=== PATIENT | female | born 1945 | race Caucasian/White ===

== ENCOUNTER → 2017-11-03 09:00 | Outpatient (CLI) | payer MEDICARE, OTHER, SELFPAY ==
--- NOTE | 2017-11-03 | DI.MG.S_ITS ---
BILATERAL DIGITAL SCREENING MAMMOGRAM 3D/2D WITH CAD: 11/03/2017 CLINICAL: Routine screening. Comparison is made to exams dated: 10/05/2014 mammogram, 09/22/2013 mammogram, and 08/03/2011 mammogram - [facility]. The tissue of both breasts is heterogeneously dense. This may lower the sensitivity of mammography. Current study was also evaluated with a Computer Aided Detection (CAD) system. No significant masses, calcifications, or other findings are seen in either breast. There has been no significant interval change. IMPRESSION: NEGATIVE There is no mammographic evidence of malignancy. A 1 year screening mammogram is recommended. This exam was interpreted at Station ID: [id number]. NOTE: For mammograms, a report in lay terms will be sent to the patient. Approximately 15% of breast malignancies will not be visualized mammographically. In the management of a palpable breast mass, a negative mammogram must not discourage biopsy of a clinically suspicious lesion. Electronically Signed By: Fernando moreno/viviana:11/03/2017 15:24:07 letter sent: Normal Exam ACR BI-RADS Category 1: Negative 3341F
== END ==
PROVIDERS: Family Provider Naturopath; PCP Family Medicine; Visit Provider Family Medicine
DX: Z12.31 Encounter for screening mammogram for malignant neoplasm of breast (principal)
CPT/HCPCS: 77063; 77067

== ENCOUNTER → 2018-05-16 13:55 | Outpatient (CLI) | payer MEDICARE, OTHER, SELFPAY ==
[2018-05-16 15:27] LABS: BUN Creatinine Ratio 21.4 (6-22); Blood Urea Nitrogen 15 mg/dL (7-17); Calcium 10.1 mg/dL (8.4-10.2); Carbon Dioxide 27 mmol/L (22-32); Chloride 101 mmol/L (98-107); Estimated Glomerular Filt Rate > 60.0 mL/min (>60); Glucose 86 mg/dL (80-110); HEMOLYSIS < 15 (0-50); Potassium 4.9 mmol/L (3.4-5.1); Sodium 139 mmol/L (137-145)
== END ==
PROVIDERS: Family Provider Naturopath; PCP Student in an Organized Health Care Education/Training Program; Visit Provider Internal Medicine Cardiovascular Disease
DX: R06.02 Shortness of breath (principal)
CPT/HCPCS: 36415; 80048

== ENCOUNTER → 2018-05-18 16:45 | Outpatient (CLI) | payer MEDICARE, OTHER, SELFPAY ==
[2018-05-18 17:30] LABS: C-Reactive Protein Quant < 0.5 mg/dL (<1.0)
[2018-05-18 17:44] LABS: Erythrocyte Sedimentation Rate 1 MM/HR (0-20)
== END ==
PROVIDERS: Family Provider Naturopath; PCP Student in an Organized Health Care Education/Training Program; Visit Provider Naturopath
DX: M31.6 Other giant cell arteritis (principal)
CPT/HCPCS: 36415; 85651; 86140

== ENCOUNTER → 2018-05-23 16:06 | Outpatient (CLI) | payer MEDICARE, OTHER, SELFPAY ==
[2018-05-23 18:16] LABS: Cholesterol 171 mg/dL (140-199); HDL Cholesterol 78 mg/dL (40-60); LDL Cholesterol Calculated 75 mg/dL (<100); Triglycerides 88 mg/dL (35-150)
[2018-05-23 18:19] LABS: Hemoglobin A1C% w Est Avg Glu 5.1 % (4.0-6.0)
== END ==
PROVIDERS: Family Provider Naturopath; PCP Student in an Organized Health Care Education/Training Program; Visit Provider Internal Medicine Cardiovascular Disease
DX: R51 Headache (principal); E78.2 Mixed hyperlipidemia
CPT/HCPCS: 36415; 80061; 83036

== ENCOUNTER → 2018-08-24 15:14 | Outpatient (CLI) | payer MEDICARE, OTHER, SELFPAY | PROVIDERS: Family Provider Naturopath; PCP Student in an Organized Health Care Education/Training Program; Visit Provider Student in an Organized Health Care Education/Training Program | DX: Z13.820 Encounter for screening for osteoporosis (principal); M85.852 Other specified disorders of bone density and structure, left thigh; Z78.0 Asymptomatic menopausal state; Z90.722 Acquired absence of ovaries, bilateral; Z87.891 Personal history of nicotine dependence; Z82.62 Family history of osteoporosis | CPT/HCPCS: 77080 ==

== ENCOUNTER 2018-10-30 09:28 | Emergency (ER) | payer MEDICARE, OTHER, SELFPAY ==
[2018-10-30 09:45] VITALS: BP 161/97; PULSE 66; RESP 13; TEMP 36.3; O2SAT 100; BMI 22.7
--- NOTE | 2018-10-30 09:48 | DI.RAD.S_ITS ---
PROCEDURE: XR FOOT RT MIN 3V INDICATIONS: right foot pain TECHNIQUE: 3 views of the foot were acquired. COMPARISON: None. FINDINGS: Bones: Mildly displaced fracture of the distal aspect of the proximal phalanx of the fifth digit. There is articular surface extension to the proximal interphalangeal joint. Soft tissues: No tibiotalar joint effusion. Achilles tendon appears normal. IMPRESSION: Fifth digit fracture. Dictated by: Fahad Buenrostro M.D. on 10/30/2018 at 8:59 Approved by: Fahad Buenrostro M.D. on 10/30/2018 at 9:00
[2018-10-30 09:50] VITALS: PULSE 72
--- NOTE | 2018-10-30 09:51 | PC.NURSE ---
right foot CSM wnl, Movement only limited by pain.
[2018-10-30 11:28] VITALS: BP 166/97; PULSE 78; RESP 14; O2SAT 99
--- NOTE | 2018-10-30 11:32 | ED.LOWEXIN ---
HPI - Extremity Injury (Lower) <Julia Castorena, DREDGE MECHANIC-BC - Last Filed: 10/30/18 13:16> General Chief Complaint: Extremity Injury, Lower Stated Complaint: Rt foot hurt tripped Time Seen by Provider: 10/30/18 11:02 Source: patient and family Mode of arrival: ambulatory Limitations: no limitations History of Present Illness HPI Narrative: The patient is a 73-year-old female nonsmoker fracture who presents with a chief complaint of right 5th toe pain. She states she kicked a shoe last night. She has not taken anything for pain. She has not done rest ice compression elevation. She complains of bruising and swelling around the base of the toe. She states she can move the toe, but hurts to move it. Related Data Home Medications Medication Instructions Recorded Confirmed COENZYME Q10/VITAMIN E (CO-Q-10) 10 mg PO QDAY #0 05/26/12 azelastine 0.15 % (205.5 mcg) 1 spray NASAL BID 07/20/18 07/20/18 nasal spray carvedilol 12.5 mg tablet 12.5 mg PO BID 07/20/18 07/20/18 carvedilol 25 mg tablet 25 mg PO BID 07/20/18 07/20/18 fluticasone propionate 50 2 spray NASAL DAILY 07/20/18 07/20/18 mcg/actuation nasal spray,suspension Previous Rx's Medication Instructions Recorded [estriol cream 0.2%] 2 mg VAGINAL SEE INSTRUCTIONS #30 08/18/16 gm albuterol sulfate [Ventolin HFA] 0 INH Q4H PRN #1 inh 04/08/17 losartan 50 mg tablet 75 mg PO QDAY #135 tab 05/24/18 acyclovir 200 mg capsule 200 mg PO QDAY #90 cap 07/20/18 ibuprofen 800 mg tablet 800 mg PO TID #30 tab 07/20/18 tramadol 50 mg tablet 50 mg PO TID #30 tab 07/20/18 fluoxetine 10 mg capsule 10 mg PO QDAY #90 cap 08/02/18 Allergies Allergy/AdvReac Type Severity Reaction Status Date / Time iodine Allergy Severe WHOLE Verified 10/30/18 09:45 LOBSTER Penicillins Allergy Mild HIVES Verified 10/30/18 09:45 Sulfa (Sulfonamide Allergy Mild N&V Verified 10/30/18 09:45 Antibiotics) adhesive Allergy Unknown SENSITIVE Verified 10/30/18 09:45 TO TAPE Review of Systems <CHRISTIAN Zavala - Last Filed: 10/30/18 13:16> Review of Systems GENERAL: Denies chills, fatigue, malaise, fever, sweats. HEENT: Denies sinus pain, ear pain, sore throat, difficulty swallowing, dizziness. RESPIRATORY: Denies dyspnea, cough, wheezing, hemoptysis, sputum. CARDIOVASCULAR: Denies chest pain, palpitations, orthopnea, edema, GASTROINTESTINAL: Denies nausea, vomiting, abdominal pain, diarrhea, constipation, melena. : Denies dysuria, frequency, incontinence, hematuria, urinary retention. MUSCULOSKELETAL: See HPI SKIN: See HPI NEUROLOGIC: Denies weakness, headache, numbness, change in speech, confusion, seizures, incoordination. PSYCHIATRIC: No concerning psychosocial issues. 12 point review of systems is negative except for those stated above PFSH <CHRISTIAN Zavaal - Last Filed: 10/30/18 13:16> Medical History Depression (Chronic) Glaucoma (Chronic) Herpes (Chronic) Hypertension (Chronic) Surgical History History of hemorrhoidectomy (Resolved) History of surgery (Resolved) History of surgery (Resolved) Social History Smoking Status: Never smoker alcohol intake: current substance use type: does not use Social History Smoking Status: Never smoker alcohol intake: current substance use type: does not use Exam <CHRISTIAN Zavala - Last Filed: 10/30/18 13:16> Narrative Exam Narrative: GENERAL: This is a well-nourished, well-developed patient, in no acute distress HEAD: Atraumatic. Normocephalic. No temporal or scalp tenderness. EYES: Pupils equal round and reactive. Extraocular motions intact. No scleral icterus. No injection or drainage. ENT: Nose without bleeding, purulent drainage or septal hematoma. Throat without erythema, tonsillar hypertrophy or exudate. Uvula midline. Airway patent. NECK: Trachea midline. No JVD or lymphadenopathy. Supple, nontender, no meningeal signs. CARDIOVASCULAR: Regular rate and rhythm RESPIRATORY: No cough. No increased respiratory effort. No accessory muscle use. EXTREMITIES: Pain to palpation at the base of right 5th digit. Swelling noted. Positive pedal pulses right foot. Capillary refill less than 2 seconds all toes right foot. BACK: Nontender without deformity or crepitance. No flank tenderness. NEURO: AOx3. SKIN: Ecchymosis and slight swelling at the base of the right 5th toe. Initial Vital Signs Initial Vital Signs: Vital Signs Temperature 97.4 F L 10/30/18 09:45 Pulse Rate 66 10/30/18 09:45 Respiratory Rate 13 10/30/18 09:45 Blood Pressure 161/97 H 10/30/18 09:45 Pulse Oximetry 100 10/30/18 09:45 <Barbie Morelos MD - Last Filed: 10/30/18 13:20> Initial Vital Signs Initial Vital Signs: Vital Signs Temperature 97.4 F L 10/30/18 09:45 Pulse Rate 66 10/30/18 09:45 Respiratory Rate 13 10/30/18 09:45 Blood Pressure 161/97 H 10/30/18 09:45 Pulse Oximetry 100 10/30/18 09:45 Procedures <CHRISTIAN Zavala - Last Filed: 10/30/18 13:16> Orthopedic Splinting/Casting Injury #1: Side: right Lower Extremity Injury Location: foot Lower Extremity Immobilizer: boot orthosis and post-op shoe Post splinting neuro exam: intact Post splinting vascular exam: intact Placed by: Nursing Course <CHRISTIAN Zavala - Last Filed: 10/30/18 13:16> Orders Ordered: ED Orders 10/30/18 09:48 XR foot RT min 3V Stat Vital Signs - 8 hr 10/30/18 09:45 10/30/18 09:50 10/30/18 11:28 Temperature 97.4 F L Pulse Rate 66 78 Pulse Rate [Right Dorsalis Pedis] 72 Respiratory Rate 13 14 Blood Pressure 161/97 H Blood Pressure [Right Arm] 166/97 H Pulse Oximetry 100 99 <Barbie Morelos MD - Last Filed: 10/30/18 13:20> Orders Ordered: ED Orders 10/30/18 09:48 XR foot RT min 3V Stat Vital Signs - 8 hr 10/30/18 09:45 10/30/18 09:50 10/30/18 11:28 Temperature 97.4 F L Pulse Rate 66 78 Pulse Rate [Right Dorsalis Pedis] 72 Respiratory Rate 13 14 Blood Pressure 161/97 H Blood Pressure [Right Arm] 166/97 H Pulse Oximetry 100 99 MDM - Extremity Injury (Lower) <TUSHAR Zavala - Last Filed: 10/30/18 13:16> Imaging Data Foot x-ray: Radiologist's impression: [address] [address] XRay Report Signed Patient: Sharri Rivera [facility]#: [id number] : 4Acct:[id number] Age/Sex: 73 / FDate of Service: 10/30/18 Loc: ED Accession Number: [id number] Procedure: XR foot RT min 3V Ordering Provider: Barbie Morelos MD PROCEDURE: XR FOOT RT MIN 3V INDICATIONS: right foot pain TECHNIQUE: 3 views of the foot were acquired. COMPARISON: None. FINDINGS: Bones: Mildly displaced fracture of the distal aspect of the proximal phalanx of the fifth digit. There is articular surface extension to the proximal interphalangeal joint. Soft tissues: No tibiotalar joint effusion. Achilles tendon appears normal. IMPRESSION: Fifth digit fracture. Dictated by: Fahad Buenrostro M.D. on 10/30/2018 at 8:59 Approved by: Fahad Buenrostro M.D. on 10/30/2018 at 9:00 [facility] Narrative Medical decision making narrative: The patient is a 53-year-old female who presents with chief complaint of toe pain. Her x-ray illustrated fracture. She is neurovascularly intact. She was placed in a walking shoe. Discussed at length rest ice compression elevation as well as [id number] pain medications as needed and able. The patient declined any pain medications here in the emergency department. Discussed at length follow up with PCP as well as coming back to the ER for any acute concerns. Patient has no questions or concerns upon discharge. Discharge Plan Departure Patient Disposition: Home Clinical Impression: Closed fracture of fifth toe of right foot Qualifiers: Encounter type: initial encounter Qualified Code(s): S92.501A - Displaced unspecified fracture of right lesser toe(s), initial encounter for closed fracture Discharge Date/Time: 10/30/18 11:44 Interventions: ED Discharge Assessment Last Done: 10/30/18 11:42 Instructions: DI for Toe Fracture, How To Perform RICE (Rest, Ice, Compress, Elevate) Activity Restrictions/Additional Instructions: Thank you for trusting us with your care today. Unfortunately you fractured your toe. Please use rest ice compression elevation as well as tqiq-ehy-lohrhkz pain medications as needed and able. Please contact your PCP for follow-up. You can also follow-up with [facility] as needed and able. Please come back to the emergency department for any acute concerns such as lack of circulation to your toe. Prescriptions: No Action COENZYME Q10/VITAMIN E (CO-Q-10) 10 mg PO QDAY Qty: 0 RF: 0 [estriol cream 0.2%] 2 mg Vaginal SEE INSTRUCTIONS Qty: 30 RF: 5 albuterol sulfate [Ventolin HFA] 90 MCG/PUFF HFA aerosol inhaler INH Q4H PRNQty: 1 RF: 1 losartan 50 mg tablet 75 mg PO QDAY Qty: 135 RF: 0 fluoxetine [Prozac] 10 mg capsule 10 mg PO QDAY Qty: 90 RF: 3 carvedilol 25 mg tablet 25 mg PO BID RF: 0 carvedilol 12.5 mg tablet 12.5 mg PO BID RF: 0 azelastine 0.15 % (205.5 mcg) spray,non-aerosol 1 spray NASAL BID RF: 0 fluticasone propionate 50 mcg/actuation spray,suspension 2 spray NASAL DAILY RF: 0 ibuprofen 800 mg tablet 800 mg PO TID Qty: 30 RF: 2 tramadol 50 mg tablet 50 mg PO TID Qty: 30 RF: 0 acyclovir [Zovirax] 200 mg capsule 200 mg PO QDAY Qty: 90 RF: 1 Referrals: Conrad Villarreal MD [Primary Care Provider] -
--- NOTE | 2018-10-30 11:36 | ED_ITS ---
HPI - Extremity Injury (Lower) <Julia Castorena, MACHINE WHITENER-BC - Last Filed: 10/30/18 13:16> General Chief Complaint: Extremity Injury, Lower Stated Complaint: Rt foot hurt tripped Time Seen by Provider: 10/30/18 11:02 Source: patient and family Mode of arrival: ambulatory Limitations: no limitations History of Present Illness HPI Narrative: The patient is a 73-year-old female nonsmoker fracture who presents with a chief complaint of right 5th toe pain. She states she kicked a shoe last night. She has not taken anything for pain. She has not done rest ice compression elevation. She complains of bruising and swelling around the base of the toe. She states she can move the toe, but hurts to move it. Related Data Home Medications Medication Instructions Recorded Confirmed COENZYME Q10/VITAMIN E (CO-Q-10) 10 mg PO QDAY #0 05/26/12 azelastine 0.15 % (205.5 mcg) 1 spray NASAL BID 07/20/18 07/20/18 nasal spray carvedilol 12.5 mg tablet 12.5 mg PO BID 07/20/18 07/20/18 carvedilol 25 mg tablet 25 mg PO BID 07/20/18 07/20/18 fluticasone propionate 50 2 spray NASAL DAILY 07/20/18 07/20/18 mcg/actuation nasal spray,suspension Previous Rx's Medication Instructions Recorded [estriol cream 0.2%] 2 mg VAGINAL SEE INSTRUCTIONS #30 08/18/16 gm albuterol sulfate [Ventolin HFA] 0 INH Q4H PRN #1 inh 04/08/17 losartan 50 mg tablet 75 mg PO QDAY #135 tab 05/24/18 acyclovir 200 mg capsule 200 mg PO QDAY #90 cap 07/20/18 ibuprofen 800 mg tablet 800 mg PO TID #30 tab 07/20/18 tramadol 50 mg tablet 50 mg PO TID #30 tab 07/20/18 fluoxetine 10 mg capsule 10 mg PO QDAY #90 cap 08/02/18 Allergies Allergy/AdvReac Type Severity Reaction Status Date / Time iodine Allergy Severe WHOLE Verified 10/30/18 09:45 LOBSTER Penicillins Allergy Mild HIVES Verified 10/30/18 09:45 Sulfa (Sulfonamide Allergy Mild N&V Verified 10/30/18 09:45 Antibiotics) adhesive Allergy Unknown SENSITIVE Verified 10/30/18 09:45 TO TAPE Review of Systems <CHRISTIAN Zavala - Last Filed: 10/30/18 13:16> Review of Systems GENERAL: Denies chills, fatigue, malaise, fever, sweats. HEENT: Denies sinus pain, ear pain, sore throat, difficulty swallowing, dizziness. RESPIRATORY: Denies dyspnea, cough, wheezing, hemoptysis, sputum. CARDIOVASCULAR: Denies chest pain, palpitations, orthopnea, edema, GASTROINTESTINAL: Denies nausea, vomiting, abdominal pain, diarrhea, constipation, melena. : Denies dysuria, frequency, incontinence, hematuria, urinary retention. MUSCULOSKELETAL: See HPI SKIN: See HPI NEUROLOGIC: Denies weakness, headache, numbness, change in speech, confusion, seizures, incoordination. PSYCHIATRIC: No concerning psychosocial issues. 12 point review of systems is negative except for those stated above PFSH <CHRISTIAN Zavala - Last Filed: 10/30/18 13:16> Medical History Depression (Chronic) Glaucoma (Chronic) Herpes (Chronic) Hypertension (Chronic) Surgical History History of hemorrhoidectomy (Resolved) History of surgery (Resolved) History of surgery (Resolved) Social History Smoking Status: Never smoker alcohol intake: current substance use type: does not use Social History Smoking Status: Never smoker alcohol intake: current substance use type: does not use Exam <CHRISTIAN Zavala - Last Filed: 10/30/18 13:16> Narrative Exam Narrative: GENERAL: This is a well-nourished, well-developed patient, in no acute distress HEAD: Atraumatic. Normocephalic. No temporal or scalp tenderness. EYES: Pupils equal round and reactive. Extraocular motions intact. No scleral icterus. No injection or drainage. ENT: Nose without bleeding, purulent drainage or septal hematoma. Throat without erythema, tonsillar hypertrophy or exudate. Uvula midline. Airway patent. NECK: Trachea midline. No JVD or lymphadenopathy. Supple, nontender, no meningeal signs. CARDIOVASCULAR: Regular rate and rhythm RESPIRATORY: No cough. No increased respiratory effort. No accessory muscle use. EXTREMITIES: Pain to palpation at the base of right 5th digit. Swelling noted. Positive pedal pulses right foot. Capillary refill less than 2 seconds all toes right foot. BACK: Nontender without deformity or crepitance. No flank tenderness. NEURO: AOx3. SKIN: Ecchymosis and slight swelling at the base of the right 5th toe. Initial Vital Signs Initial Vital Signs: Vital Signs Temperature 97.4 F L 10/30/18 09:45 Pulse Rate 66 10/30/18 09:45 Respiratory Rate 13 10/30/18 09:45 Blood Pressure 161/97 H 10/30/18 09:45 Pulse Oximetry 100 10/30/18 09:45 <Barbie Morelos MD - Last Filed: 10/30/18 13:20> Initial Vital Signs Initial Vital Signs: Vital Signs Temperature 97.4 F L 10/30/18 09:45 Pulse Rate 66 10/30/18 09:45 Respiratory Rate 13 10/30/18 09:45 Blood Pressure 161/97 H 10/30/18 09:45 Pulse Oximetry 100 10/30/18 09:45 Procedures <CHRISTIAN Zavala - Last Filed: 10/30/18 13:16> Orthopedic Splinting/Casting Injury #1: Side: right Lower Extremity Injury Location: foot Lower Extremity Immobilizer: boot orthosis and post-op shoe Post splinting neuro exam: intact Post splinting vascular exam: intact Placed by: Nursing Course <CHRISTIAN Zavala - Last Filed: 10/30/18 13:16> Orders Ordered: ED Orders 10/30/18 09:48 XR foot RT min 3V Stat Vital Signs - 8 hr 10/30/18 09:45 10/30/18 09:50 10/30/18 11:28 Temperature 97.4 F L Pulse Rate 66 78 Pulse Rate [Right Dorsalis Pedis] 72 Respiratory Rate 13 14 Blood Pressure 161/97 H Blood Pressure [Right Arm] 166/97 H Pulse Oximetry 100 99 <Barbie Morelos MD - Last Filed: 10/30/18 13:20> Orders Ordered: ED Orders 10/30/18 09:48 XR foot RT min 3V Stat Vital Signs - 8 hr 10/30/18 09:45 10/30/18 09:50 10/30/18 11:28 Temperature 97.4 F L Pulse Rate 66 78 Pulse Rate [Right Dorsalis Pedis] 72 Respiratory Rate 13 14 Blood Pressure 161/97 H Blood Pressure [Right Arm] 166/97 H Pulse Oximetry 100 99 MDM - Extremity Injury (Lower) <TUSHAR Zavala - Last Filed: 10/30/18 13:16> Imaging Data Foot x-ray: Radiologist's impression: [address] [address] XRay Report Signed Patient: hSarri Rivera [facility]#: [id number] : 4Acct:[id number] Age/Sex: 73 / FDate of Service: 10/30/18 Loc: ED Accession Number: [id number] Procedure: XR foot RT min 3V Ordering Provider: Barbie Morelos MD PROCEDURE: XR FOOT RT MIN 3V INDICATIONS: right foot pain TECHNIQUE: 3 views of the foot were acquired. COMPARISON: None. FINDINGS: Bones: Mildly displaced fracture of the distal aspect of the proximal phalanx of the fifth digit. There is articular surface extension to the proximal interphalangeal joint. Soft tissues: No tibiotalar joint effusion. Achilles tendon appears normal. IMPRESSION: Fifth digit fracture. Dictated by: Fahad Buenrostro M.D. on 10/30/2018 at 8:59 Approved by: Fahad Buenrostro M.D. on 10/30/2018 at 9:00 [facility] Narrative Medical decision making narrative: The patient is a 53-year-old female who presents with chief complaint of toe pain. Her x-ray illustrated fracture. She is neurovascularly intact. She was placed in a walking shoe. Discussed at length rest ice compression elevation as well as fhnb-jhz-clmytam pain medications as needed and able. The patient declined any pain medications here in the emergency department. Discussed at length follow up with PCP as well as coming back to the ER for any acute concerns. Patient has no questions or concerns upon discharge. Discharge Plan Departure Patient Disposition: Home Clinical Impression: Closed fracture of fifth toe of right foot Qualifiers: Encounter type: initial encounter Qualified Code(s): S92.501A - Displaced unspecified fracture of right lesser toe(s), initial encounter for closed fracture Discharge Date/Time: 10/30/18 11:44 Interventions: ED Discharge Assessment Last Done: 10/30/18 11:42 Instructions: DI for Toe Fracture, How To Perform RICE (Rest, Ice, Compress, Elevate) Activity Restrictions/Additional Instructions: Thank you for trusting us with your care today. Unfortunately you fractured your toe. Please use rest ice compression elevation as well as [id number] pain medications as needed and able. Please contact your PCP for follow-up. You can also follow-up with [facility] as needed and able. Please come back to the emergency department for any acute concerns such as lack of circulation to your toe. Prescriptions: No Action COENZYME Q10/VITAMIN E (CO-Q-10) 10 mg PO QDAY Qty: 0 RF: 0 [estriol cream 0.2%] 2 mg Vaginal SEE INSTRUCTIONS Qty: 30 RF: 5 albuterol sulfate [Ventolin HFA] 90 MCG/PUFF HFA aerosol inhaler INH Q4H PRNQty: 1 RF: 1 losartan 50 mg tablet 75 mg PO QDAY Qty: 135 RF: 0 fluoxetine [Prozac] 10 mg capsule 10 mg PO QDAY Qty: 90 RF: 3 carvedilol 25 mg tablet 25 mg PO BID RF: 0 carvedilol 12.5 mg tablet 12.5 mg PO BID RF: 0 azelastine 0.15 % (205.5 mcg) spray,non-aerosol 1 spray NASAL BID RF: 0 fluticasone propionate 50 mcg/actuation spray,suspension 2 spray NASAL DAILY RF: 0 ibuprofen 800 mg tablet 800 mg PO TID Qty: 30 RF: 2 tramadol 50 mg tablet 50 mg PO TID Qty: 30 RF: 0 acyclovir [Zovirax] 200 mg capsule 200 mg PO QDAY Qty: 90 RF: 1 Referrals: Conrad Villarreal MD [Primary Care Provider] -
== END 2018-10-30 11:44 | disposition home or self-care (01) ==
PROVIDERS: Emergency Provider Nurse Practitioner Family; Family Provider Naturopath; PCP Student in an Organized Health Care Education/Training Program
DX: S92.501A Displaced unspecified fracture of right lesser toe(s), initial encounter for closed fracture (principal); W22.8XXA Striking against or struck by other objects, initial encounter
CPT/HCPCS: 29550; 73630; 99282; 99283

== ENCOUNTER → 2019-03-19 10:21 | Outpatient (CLI) | payer MEDICARE, OTHER, SELFPAY | PROVIDERS: Family Provider Naturopath; PCP Student in an Organized Health Care Education/Training Program; Visit Provider Physician Assistant | DX: R30.0 Dysuria (principal) | CPT/HCPCS: 87086 ==

== ENCOUNTER → 2019-03-20 11:20 | Outpatient (CLI) | payer MEDICARE, OTHER, SELFPAY ==
--- NOTE | 2019-03-20 | DI.MG.S_ITS ---
BILATERAL DIGITAL SCREENING MAMMOGRAM 3D/2D WITH CAD: 03/20/2019 CLINICAL: Routine screening. Comparison is made to exams dated: 11/03/2017 mammogram, 10/05/2014 mammogram, 09/22/2013 mammogram, and 08/03/2011 mammogram - [facility]. The tissue of both breasts is heterogeneously dense. This may lower the sensitivity of mammography. Current study was also evaluated with a Computer Aided Detection (CAD) system. There are benign vascular calcifications in both breasts. No significant masses, calcifications, or other findings are seen in either breast. There has been no significant interval change. IMPRESSION: There is no mammographic evidence of malignancy. A 1 year screening mammogram is recommended. This exam was interpreted at Station ID: [id number]. NOTE: For mammograms, a report in lay terms will be sent to the patient. Approximately 15% of breast malignancies will not be visualized mammographically. In the management of a palpable breast mass, a negative mammogram must not discourage biopsy of a clinically suspicious lesion. Electronically Signed By: Atilio vergara/viviana:03/20/2019 20:53:23 copy to: JAIMIE HERNANDEZ letter sent: Normal Exam ACR BI-RADS Category 2: Benign Finding(s) 3342F
== END ==
PROVIDERS: Family Provider Naturopath; PCP Student in an Organized Health Care Education/Training Program; Visit Provider Student in an Organized Health Care Education/Training Program
DX: Z12.31 Encounter for screening mammogram for malignant neoplasm of breast (principal)
CPT/HCPCS: 77063; 77067

== ENCOUNTER → 2019-11-15 11:59 | Outpatient (CLI) | payer MEDICARE, OTHER, SELFPAY ==
[2019-11-15 13:41] LABS: Albumin 4.4 g/dL (3.5-5.0); BUN Creatinine Ratio 20.3 (6-22); Blood Urea Nitrogen 14 mg/dL (7-17); Calcium 9.7 mg/dL (8.4-10.2); Carbon Dioxide 29 mmol/L (22-32); Chloride 103 mmol/L (98-107); Estimated Glomerular Filt Rate > 60.0 mL/min (>60); Glucose 91 mg/dL (80-110); HEMOLYSIS < 15 (0-50); Phosphorous 4.1 mg/dL (2.8-4.1); Potassium 4.6 mmol/L (3.4-5.1); Sodium 136 mmol/L (137-145)
== END ==
PROVIDERS: Family Provider Naturopath; PCP Student in an Organized Health Care Education/Training Program; Referring Provider Internal Medicine Cardiovascular Disease; Visit Provider Internal Medicine Cardiovascular Disease
DX: R06.02 Shortness of breath (principal)
CPT/HCPCS: 36415; 80069

== ENCOUNTER → 2019-11-29 14:42 | Outpatient (CLI) | payer MEDICARE, OTHER, SELFPAY ==
[2019-11-29 16:00] LABS: Add Manual Diff / Slide Review NO; Basophils Absolute Auto 0 /uL (0-100); Eosinophils Absolute Auto 100 /uL (0-450); Eosinophils Percent Auto 1.9 % (2-4); Hematocrit 39.7 % (36-46); Hemoglobin 13.4 g/dL (12.0-16.0); Lymphocytes Absolute Auto 1700 /uL (1100-4500); Lymphocytes Percent Auto 36.1 % (25-40); Mean Corpuscular HGB Conc 33.7 % (30-36); Mean Corpuscular Hemoglobin 33.2 PG (26-34); Mean Corpuscular Volume 98.7 fL (80-100); Monocytes Absolute Auto 500 /uL (0-900); Monocytes Percent Auto 9.8 % (3-14); Neutrophils Absolute Auto 2500 /uL (1500-7000); Neutrophils Percent Auto 51.2 % (50-75); Platelet Count 206 X10^3/uL (150-400); Red Blood Cell Count 4.02 X10^6/uL (4.0-5.2); Red Cell Distribution Width 12.9 % (11.6-14.8); White Blood Cell Count 4.8 X10^3/uL (4.5-11.0)
[2019-11-29 17:05] LABS: Alanine Aminotransferase 22 IU/L (<35); Albumin 4.3 g/dL (3.5-5.0); Albumin Globulin Ratio 1.9 (1.0-2.8); Alkaline Phosphatase 54 U/L (38-126); Aspartate Aminotransferase 28 IU/L (14-36); Bilirubin Total 0.8 mg/dL (0.2-1.3); Bilirubin Unconjugated 0.9 mg/dL (0.0-1.1); Globulin 2.3 g/dL (1.7-4.1); HEMOLYSIS < 15 (0-50); Total Protein 6.6 g/dL (6.3-8.2)
== END ==
PROVIDERS: Family Provider Naturopath; PCP Student in an Organized Health Care Education/Training Program; Referring Provider Podiatrist; Visit Provider Podiatrist
DX: B35.1 Tinea unguium (principal)
CPT/HCPCS: 36415; 80076; 85025

== ENCOUNTER → 2020-06-08 14:11 | Outpatient (CLI) | payer MEDICARE, OTHER, SELFPAY ==
--- NOTE | 2020-06-08 | DI.MG.S_ITS ---
BILATERAL DIGITAL SCREENING MAMMOGRAM 3D/2D WITH CAD: 06/08/2020 CLINICAL: Routine screening. Comparison is made to exams dated: 03/20/2019 mammogram and 11/03/2017 mammogram - [facility]. The tissue of both breasts is heterogeneously dense. This may lower the sensitivity of mammography. Current study was also evaluated with a Computer Aided Detection (CAD) system. There are benign vascular calcifications in both breasts. No significant masses, calcifications, or other findings are seen in either breast. There has been no significant interval change. IMPRESSION: BENIGN There is no mammographic evidence of malignancy. A 1 year screening mammogram is recommended. This exam was interpreted at Station ID: [id number]. NOTE: For mammograms, a report in lay terms will be sent to the patient. Approximately 15% of breast malignancies will not be visualized mammographically. In the management of a palpable breast mass, a negative mammogram must not discourage biopsy of a clinically suspicious lesion. Electronically Signed By: Woo bhakta/viviana:06/10/2020 09:12:39 copy to: JAIMIE HERNANDEZ letter sent: Normal Exam ACR BI-RADS Category 2: Benign Finding(s) 3342F
== END ==
PROVIDERS: Family Provider Naturopath; PCP Student in an Organized Health Care Education/Training Program; Referring Provider Student in an Organized Health Care Education/Training Program; Visit Provider Student in an Organized Health Care Education/Training Program
DX: Z12.31 Encounter for screening mammogram for malignant neoplasm of breast (principal)
CPT/HCPCS: 77063; 77067

== ENCOUNTER 2020-12-27 11:24 | Emergency (ER) | payer MEDICARE, OTHER, SELFPAY ==
[2020-12-27 11:28] VITALS: BP 177/89; PULSE 64; RESP 15; TEMP 36.6; O2SAT 99; BMI 23.5
--- NOTE | 2020-12-27 11:33 | DI.RAD.S_ITS ---
PROCEDURE: XR RIBS LT MIN 3V W CXR1V INDICATIONS: rib pain after fall TECHNIQUE: Two views of the left ribs were acquired, along with a single view chest. COMPARISON: [facility], , CHEST 2 VIEW, 10/08/2015, 15:22. FINDINGS: Surgical changes and devices: None. Bones and chest wall: No displaced rib fracture identified. No suspicious bony lesions. Overlying soft tissues appear unremarkable. Lungs and pleura: There are linear opacities peripherally in the left lung base likely representing atelectasis. Mild interstitial prominence is noted bilaterally. No pleural effusions or pneumothorax. Mediastinum: Mediastinal contours appear normal. Heart size is normal. IMPRESSION: 1. No displaced rib fracture identified. Dictated by: Fernando Boateng M.D. on 12/27/2020 at 11:56 Approved by: Fernando Boateng M.D. on 12/27/2020 at 11:58
--- NOTE | 2020-12-27 13:17 | ED.FALL ---
HPI - Fall <Basim Ricks PA-C - Last Filed: 12/27/20 19:57> General Chief Complaint: Fall Stated Complaint: Slipped on stairs-rib pain Time Seen by Provider: 12/27/20 13:06 Source: patient Mode of arrival: Ambulatory History of Present Illness HPI Narrative: Yaritza presents today with chief complaint of right lower posterior rib pain that she sustained on Wednesday. She reports that she was walking down some non carpeted stairs and slipped which caused her to fall backwards directly onto her lower back. At the time she did not think much of it. She then went home and when she woke up the next morning had considerable discomfort. She was hoping that this would go away on its own but reports that it has not. She denies any significant difficulty breathing but reports increased pain with bending forward or twisting. She denies any previous injuries to the area. Related Data Home Medications Medication Instructions Recorded Confirmed COENZYME Q10/VITAMIN E (CO-Q-10) 10 mg PO QDAY #0 05/26/12 06/12/20 carvedilol 25 mg tablet 25 mg PO BID 07/20/18 06/12/20 amlodipine 2.5 mg tablet 2.5 mg PO BEDTIME tab 04/05/19 06/12/20 fluticasone 500 mcg-salmeterol 50 1 inh INHALATION BID 06/12/20 06/12/20 mcg/dose blistr powdr for inhalation (Advair Diskus) azelastine 205.5 mcg (0.15 %) 2 spray INTRANASAL BID 07/05/20 nasal spray montelukast 10 mg tablet 10 mg PO DAILY 07/05/20 Previous Rx's Medication Instructions Recorded losartan 50 mg tablet 75 mg PO QDAY #135 tab 05/24/18 tramadol 50 mg tablet 50 mg PO TID #30 tab 07/20/18 valacyclovir 500 mg tablet 500 mg PO BID #18 tab 06/12/20 albuterol sulfate 90 mcg/actuation 1 puff INHALATION Q4-6H PRN #6.7 g 06/14/20 aerosol inhaler (Ventolin HFA) fluoxetine 10 mg capsule 10 mg PO DAILY #30 cap 12/31/20 Allergies Allergy/AdvReac Type Severity Reaction Status Date / Time iodine Allergy Severe WHOLE Verified 12/27/20 11:30 LOBSTER Penicillins Allergy Mild HIVES Verified 12/27/20 11:30 Sulfa (Sulfonamide Allergy Mild N&V Verified 12/27/20 11:30 Antibiotics) adhesive Allergy Unknown SENSITIVE Verified 12/27/20 11:30 TO TAPE Review of Systems <Basim Ricks PA-C - Last Filed: 12/27/20 19:57> Review of Systems Narrative: As per HPI Patient History <Basim Ricks PA-C - Last Filed: 12/27/20 19:57> Medical History (Updated 12/27/20 @ 13:31 by Basim Ricks PA-C) Closed fracture of fourth metatarsal bone of left foot Closed fracture of metatarsal of left foot Closed fracture of third metatarsal bone of left foot Depression Fracture of distal end of fibula Glaucoma Herpes Hypertension Surgical History History of hemorrhoidectomy History of surgery History of surgery Social History Smoking Status: Never smoker alcohol intake: current substance use type: does not use Smoking Status: Never smoker alcohol intake frequency: a few times a week Substance Use Type: does not use Exam <Basim Ricks PA-C - Last Filed: 12/27/20 19:57> Narrative Exam Narrative: Exam Narrative: Const General: cooperative, healthy appearing, comfortable, no acute distress, well developed and well groomed Nutritional Appearance: average body habitus Orientation: alert and oriented x3 HENMT Head: normal to inspection and atraumatic Ears: hearing grossly normal bilaterally Nose: external nose normal and nares normal Face and sinus: normal facial exam Neck Neck: normal visual inspection and supple Resp Effort & Inspection: normal respiratory effort, able to speak in complete sentences, no audible wheezes, not labored, no nasal flaring and no respiratory distress, clear to auscultation bilaterally Cardiac Regular rate and rhythm, no discernible murmurs, rubs or gallops Neuro General: alert, oriented x3, gait normal, tone normal and moves all extremities Cognition: normal cognition Speech: speech normal Gait: normal gait Musculoskeletal No significant chest wall tenderness or tenderness with anterior-posterior compression/lateral compression of her ribs. She has point tenderness to right lower back. No significant midline spinal tenderness. Skin No bruising, rashes or erythema noted. Psych Appearance: grossly normal and well kempt Mental Status: mental status grossly normal Speech and Movement: speech and movement normal Mood: congruent mood Affect: normal affect Initial Vital Signs Initial Vital Signs: Vital Signs Temperature 97.9 F 12/27/20 11:28 Pulse Rate 64 12/27/20 11:28 Respiratory Rate 15 12/27/20 11:28 Blood Pressure 177/89 H 12/27/20 11:28 Pulse Oximetry 99 12/27/20 11:28 <DO Daniel Thacker Last Filed: 01/01/21 08:35> Initial Vital Signs Initial Vital Signs: Vital Signs Temperature 97.9 F 12/27/20 11:28 Pulse Rate 64 12/27/20 11:28 Respiratory Rate 15 12/27/20 11:28 Blood Pressure 177/89 H 12/27/20 11:28 Pulse Oximetry 99 12/27/20 11:28 Course <Basim Ricks PA-C - Last Filed: 12/27/20 19:57> Orders Ordered: ED Orders 12/27/20 11:33 XR ribs LT min 3V w CXR1V Stat Vital Signs Vital signs: Vital Signs - 8 hr 12/27/20 13:50 Pulse Rate 54 L Respiratory Rate 18 Pulse Oximetry 97 <DO Daniel Thacker Last Filed: 01/01/21 08:35> Orders Ordered: ED Orders 12/27/20 11:33 XR ribs LT min 3V w CXR1V Stat Vital Signs Vital signs: Vital Signs - 8 hr 12/27/20 13:50 Pulse Rate 54 L Respiratory Rate 18 Pulse Oximetry 97 MDM - Fall <GEORGETTE Clay Last Filed: 12/27/20 19:57> [facility] Narrative Medical decision making narrative: Patient is well-appearing at this time and does not have any significant radiographic evidence of fracture. Lungs are equal bilaterally and she is oxygenating well. She denies any significant urinary symptoms, abdominal pain, headache or any other acute concerns or complaints. Recommend that we treat this like a muscle strain with NSAIDs or acetaminophen as needed and have her follow up with her PCP if symptoms fail to improve as expected. ER return precautions were discussed with the patient. Patient verbalizes understanding and agrees to plan and has no further concerns at this time. Thank you A [id number] system was used with the dictation of this note. Please disregard any spelling or grammatical errors. Discharge Plan Departure Patient Disposition: Home Clinical Impression: Strain of muscle, fascia and tendon of lower back, initial encounter Activity Restrictions/Additional Instructions: It was very nice to meet you this afternoon. Please use acetaminophen or ibuprofen as needed for pain management. Also warm compresses or ice applied to the affected area can be helpful. I expect this to improve over the next week. If you continue to have symptoms please either return here or follow-up with your PCP for further evaluation. Thank you Baism Ricks PAC Prescriptions: No Action COENZYME Q10/VITAMIN E (CO-Q-10) 10 mg PO QDAY Qty: 0 RF: 0 losartan 50 mg tablet 75 mg PO QDAY Qty: 135 RF: 0 amlodipine 2.5 mg tablet 2.5 mg PO BEDTIME RF: 0 albuterol sulfate [Ventolin HFA] 90 mcg/actuation HFA aerosol inhaler 1 puff inhalation Q4-6H PRN (Reason: shortness of breath or wheezing) Qty: 6.7 RF: 11 montelukast 10 mg tablet 10 mg PO DAILY RF: 0 azelastine 0.15 % (205.5 mcg) spray,non-aerosol 2 spray intranasal BID RF: 0 fluoxetine 10 mg capsule 10 mg PO DAILY Qty: 30 RF: 0 carvedilol 25 mg tablet 25 mg PO BID RF: 0 tramadol 50 mg tablet 50 mg PO TID Qty: 30 RF: 0 fluticasone propion-salmeterol [Advair Diskus] 500-50 mcg/dose blister with device 1 inh inhalation BID RF: 0 valacyclovir 500 mg tablet 500 mg PO BID Qty: 18 RF: 11 Referrals: Conrad Villarreal MD [Primary Care Provider] - <Julia Zambrano DO - Last Filed: 01/01/21 08:35> Cosign ED Attending Gorgeature Attestation: I was immediately available in the department for consultation. Documentation has been reviewed.
[2020-12-27 13:50] VITALS: PULSE 54; RESP 18; O2SAT 97
== END 2020-12-27 13:51 | disposition home or self-care (01) ==
PROVIDERS: Emergency Provider Physician Assistant; Family Provider Naturopath; PCP Student in an Organized Health Care Education/Training Program
DX: S39.012A Strain of muscle, fascia and tendon of lower back, initial encounter (principal); W19.XXXA Unspecified fall, initial encounter
CPT/HCPCS: 71101; 99281; 99283

== ENCOUNTER → 2021-01-29 14:15 | Outpatient (CLI) | payer MEDICARE, OTHER, SELFPAY ==
--- NOTE | 2021-01-29 | DI.RAD.S_ITS ---
PROCEDURE: XR LUMBAR SPINE 2-3V INDICATIONS: Pain in left leg TECHNIQUE: 3 views of the lumbar spine were acquired. COMPARISON: [facility] [place], CR, XR PELVIS W LATERAL HIP RT, 03/04/2016, 11:24. FINDINGS: Bones: 5 [id number] vertebrae are present. Trace levo curvature centered at the L2 level. A grade 1 spondylolisthesis L4-L5. Moderate multilevel disc degeneration, most notably at the L4-L5 and L5-S1 levels where there is moderate facet joint arthropathy. No vertebral body compression fractures. No suspicious bony lesions. Severe left hip joint space narrowing with periarticular osteophyte formation and right hip arthroplasty is present incompletely visualized. Soft tissues: Overlying bowel gas pattern is normal. No suspicious soft tissue calcifications. IMPRESSION: 1. Multilevel spondylosis. 2. Progressive severe left hip joint degeneration. Dictated by: Basim San [facility] Interpreted: Thomas Elam MD on 01/29/2021 at 15:08 Transcribed by: ANEESH on 01/29/2021 at 15:09 Approved by: Thomas Elam M.D. on 01/29/2021 at 15:42
== END ==
PROVIDERS: Family Provider Naturopath; PCP Student in an Organized Health Care Education/Training Program; Referring Provider Chiropractor; Visit Provider Chiropractor
DX: M79.605 Pain in left leg (principal); M47.816 Spondylosis without myelopathy or radiculopathy, lumbar region
CPT/HCPCS: 72100

== ENCOUNTER → 2021-03-10 15:49 | Outpatient (CLI) | payer MEDICARE, OTHER, SELFPAY | PROVIDERS: Family Provider Naturopath; PCP Student in an Organized Health Care Education/Training Program; Referring Provider Student in an Organized Health Care Education/Training Program; Visit Provider Student in an Organized Health Care Education/Training Program | DX: Z01.810 Encounter for preprocedural cardiovascular examination (principal) | CPT/HCPCS: 87797 ==

== ENCOUNTER → 2021-03-10 16:36 | Outpatient (CLI) | payer MEDICARE, OTHER, SELFPAY ==
[2021-03-10 17:56] LABS: BUN Creatinine Ratio 24.7 (6-22); Blood Urea Nitrogen 18 mg/dL (7-17); Calcium 9.3 mg/dL (8.4-10.2); Carbon Dioxide 31 mmol/L (22-32); Chloride 101 mmol/L (98-107); Estimated Glomerular Filt Rate > 60.0 mL/min (>60); Glucose 94 mg/dL (80-110); HEMOLYSIS < 15 (0-50); Potassium 3.7 mmol/L (3.4-5.1); Sodium 137 mmol/L (137-145)
[2021-03-10 18:09] LABS: Add Manual Diff / Slide Review NO; Basophils Absolute Auto 100 /uL (0-100); Eosinophils Absolute Auto 100 /uL (0-450); Eosinophils Percent Auto 1.9 % (2-4); Hematocrit 40.1 % (36-46); Hemoglobin 13.5 g/dL (12.0-16.0); Lymphocytes Absolute Auto 1800 /uL (1100-4500); Lymphocytes Percent Auto 33.4 % (25-40); Mean Corpuscular HGB Conc 33.5 % (30-36); Mean Corpuscular Hemoglobin 32.2 PG (26-34); Monocytes Absolute Auto 500 /uL (0-900); Monocytes Percent Auto 9.9 % (3-14); Neutrophils Absolute Auto 2900 /uL (1500-7000); Neutrophils Percent Auto 53.8 % (50-75); Platelet Count 253 X10^3/uL (150-400); Red Blood Cell Count 4.18 X10^6/uL (4.0-5.2); Red Cell Distribution Width 13.3 % (11.6-14.8); White Blood Cell Count 5.5 X10^3/uL (4.5-11.0)
== END ==
PROVIDERS: Family Provider Naturopath; PCP Student in an Organized Health Care Education/Training Program; Referring Provider Student in an Organized Health Care Education/Training Program; Visit Provider Student in an Organized Health Care Education/Training Program
DX: Z01.810 Encounter for preprocedural cardiovascular examination (principal); I10 Essential (primary) hypertension
CPT/HCPCS: 36415; 80048; 85025; 87797

== ENCOUNTER → 2021-03-14 08:57 | Outpatient (CLI) | payer MEDICARE, OTHER, SELFPAY ==
[2021-03-14] MEDS: COVID-19 VACC #3, MRNA(MOD) 50 MCG/0.25 ML VIAL IM (09:05)
== END ==
PROVIDERS: Family Provider Naturopath; PCP Student in an Organized Health Care Education/Training Program; Referring Provider Internal Medicine; Visit Provider Internal Medicine
DX: Z23 Encounter for immunization (principal)
CPT/HCPCS: 0013A; 91301

== ENCOUNTER → 2021-05-16 15:28 | Outpatient (CLI) | payer MEDICARE, OTHER, SELFPAY ==
--- NOTE | 2021-05-16 15:30 | DI.MG.S_ITS ---
BILATERAL DIGITAL SCREENING MAMMOGRAM 3D/2D WITH CAD: 05/16/2021 CLINICAL: Routine screening. Comparison is made to exams dated: 06/08/2020 mammogram, 03/20/2019 mammogram, and 11/03/2017 mammogram - [facility]. The tissue of both breasts is heterogeneously dense. This may lower the sensitivity of mammography. Current study was also evaluated with a Computer Aided Detection (CAD) system. There are benign vascular calcifications in both breasts. No significant masses, calcifications, or other findings are seen in either breast. There has been no significant interval change. IMPRESSION: BENIGN There is no mammographic evidence of malignancy. A 1 year screening mammogram is recommended. This exam was interpreted at Station ID: [id number]. NOTE: For mammograms, a report in lay terms will be sent to the patient. Approximately 15% of breast malignancies will not be visualized mammographically. In the management of a palpable breast mass, a negative mammogram must not discourage biopsy of a clinically suspicious lesion. Electronically Signed By: Portillo Negron acr/viviana:05/16/2021 16:05:31 copy to: JAIMIE HERNANDEZ letter sent: Normal Exam ACR BI-RADS Category 2: Benign Finding(s) [id number]
== END ==
PROVIDERS: Family Provider Naturopath; PCP Student in an Organized Health Care Education/Training Program; Referring Provider Student in an Organized Health Care Education/Training Program; Visit Provider Student in an Organized Health Care Education/Training Program
DX: Z12.31 Encounter for screening mammogram for malignant neoplasm of breast (principal)
CPT/HCPCS: 77063; 77067

== ENCOUNTER → 2021-11-04 17:17 | Outpatient (CLI) | payer MEDICARE, OTHER, SELFPAY ==
[2021-11-04 18:05] LABS: Alanine Aminotransferase 24 IU/L (<35); Albumin 4.6 g/dL (3.5-5.0); Albumin Globulin Ratio 1.9 (1.0-2.8); Alkaline Phosphatase 53 U/L (38-126); Aspartate Aminotransferase 28 IU/L (14-36); BUN Creatinine Ratio 25.8 (6-22); Bilirubin Total 0.5 mg/dL (0.2-1.3); Blood Urea Nitrogen 17 mg/dL (7-17); Calcium 9.3 mg/dL (8.4-10.2); Carbon Dioxide 29 mmol/L (22-32); Chloride 103 mmol/L (98-107); Estimated Glomerular Filt Rate > 60 mL/min (>60); Gamma Glutamyl Transpeptidase 38 U/L (12-43); Globulin 2.4 g/dL (1.7-4.1); Glucose 94 mg/dL (80-110); HEMOLYSIS < 15 (0-50); Lipase 92 U/L (23-300); Potassium 4.3 mmol/L (3.4-5.1); Sodium 136 mmol/L (137-145)
[2021-11-04 18:12] LABS: Prealbumin 28.3 mg/dL (17.6-36.0)
[2021-11-04 18:16] LABS: NT-proBNP (BNP-Adult 18+) 820 pg/mL (<450)
== END ==
PROVIDERS: Family Provider Naturopath; PCP Student in an Organized Health Care Education/Training Program; Referring Provider Student in an Organized Health Care Education/Training Program; Visit Provider Student in an Organized Health Care Education/Training Program
DX: E11.9 Type 2 diabetes mellitus without complications (principal); R60.9 Edema, unspecified; I10 Essential (primary) hypertension; R10.11 Right upper quadrant pain
CPT/HCPCS: 36415; 80053; 82977; 83690; 83880; 84134

== ENCOUNTER → 2021-11-26 11:24 | Outpatient (CLI) | payer MEDICARE, OTHER, SELFPAY ==
[2021-11-26 12:52] LABS: BUN Creatinine Ratio 25.6 (6-22); Blood Urea Nitrogen 20 mg/dL (7-17); Calcium 9.4 mg/dL (8.4-10.2); Carbon Dioxide 30 mmol/L (22-32); Chloride 99 mmol/L (98-107); Estimated Glomerular Filt Rate > 60 mL/min (>60); Glucose 116 mg/dL (80-110); HEMOLYSIS < 15 (0-50); Potassium 4.8 mmol/L (3.4-5.1); Sodium 135 mmol/L (137-145)
[2021-11-26 13:01] LABS: NT-proBNP (BNP-Adult 18+) 481 pg/mL (<450)
== END ==
PROVIDERS: Family Provider Naturopath; PCP Student in an Organized Health Care Education/Training Program; Referring Provider Internal Medicine Cardiovascular Disease; Visit Provider Internal Medicine Cardiovascular Disease
DX: I50.31 Acute diastolic (congestive) heart failure (principal)
CPT/HCPCS: 36415; 80048; 83880

== ENCOUNTER → 2021-12-17 12:47 | Outpatient (CLI) | payer MEDICARE, OTHER, SELFPAY | PROVIDERS: Family Provider Naturopath; PCP Student in an Organized Health Care Education/Training Program; Referring Provider Student in an Organized Health Care Education/Training Program; Visit Provider Student in an Organized Health Care Education/Training Program | DX: Z78.0 Asymptomatic menopausal state (principal); Z13.820 Encounter for screening for osteoporosis; Z92.23 Personal history of estrogen therapy; Z90.710 Acquired absence of both cervix and uterus | CPT/HCPCS: 77080; 77081 ==

== ENCOUNTER → 2021-12-22 16:31 | Outpatient (CLI) | payer MEDICARE, OTHER, SELFPAY ==
[2021-12-22 17:43] LABS: Blood Urea Nitrogen 22 mg/dL (7-17); Calcium 9.5 mg/dL (8.4-10.2); Carbon Dioxide 27 mmol/L (22-32); Chloride 101 mmol/L (98-107); Estimated Glomerular Filt Rate > 60 mL/min (>60); Glucose 134 mg/dL (80-110); HEMOLYSIS < 15 (0-50); Magnesium 1.9 mg/dL (1.6-2.3); Sodium 136 mmol/L (137-145)
[2021-12-22 17:52] LABS: NT-proBNP (BNP-Adult 18+) 626 pg/mL (<450)
== END ==
PROVIDERS: Family Provider Naturopath; PCP Student in an Organized Health Care Education/Training Program; Referring Provider Internal Medicine Cardiovascular Disease; Visit Provider Internal Medicine Cardiovascular Disease
DX: I50.31 Acute diastolic (congestive) heart failure (principal)
CPT/HCPCS: 36415; 80048; 83735; 83880

== ENCOUNTER → 2022-01-23 13:10 | Outpatient (CLI) | payer MEDICARE, OTHER, SELFPAY ==
[2022-01-23 13:34] LABS: Add Manual Diff / Slide Review NO; Basophils Absolute Auto 100 /uL (0-100); Basophils Percent Auto 1.2 % (0-2); Eosinophils Absolute Auto 100 /uL (0-450); Eosinophils Percent Auto 2.4 % (2-4); Hematocrit 36.5 % (36-46); Hemoglobin 12.6 g/dL (12.0-16.0); Lymphocytes Absolute Auto 1500 /uL (1100-4500); Lymphocytes Percent Auto 30.5 % (25-40); Mean Corpuscular HGB Conc 34.4 % (30-36); Mean Corpuscular Hemoglobin 32.8 PG (26-34); Mean Corpuscular Volume 95.4 fL (80-100); Monocytes Absolute Auto 500 /uL (0-900); Monocytes Percent Auto 9.7 % (3-14); Neutrophils Absolute Auto 2800 /uL (1500-7000); Neutrophils Percent Auto 56.2 % (50-75); Platelet Count 205 X10^3/uL (150-400); Red Blood Cell Count 3.83 X10^6/uL (4.0-5.2); Red Cell Distribution Width 13.2 % (11.6-14.8)
[2022-01-23 13:43] LABS: Prothrombin Time 11.9 SECONDS (10.1-12.7)
[2022-01-23 13:44] LABS: Albumin 4.3 g/dL (3.5-5.0); BUN Creatinine Ratio 23.4 (6-22); Blood Urea Nitrogen 18 mg/dL (7-17); Calcium 9.2 mg/dL (8.4-10.2); Carbon Dioxide 28 mmol/L (22-32); Chloride 101 mmol/L (98-107); Estimated Glomerular Filt Rate > 60 mL/min (>60); Glucose 87 mg/dL (80-110); HEMOLYSIS < 15 (0-50); Phosphorous 3.8 mg/dL (2.8-4.1); Potassium 4.1 mmol/L (3.4-5.1); Sodium 140 mmol/L (137-145)
== END ==
PROVIDERS: Family Provider Naturopath; PCP Student in an Organized Health Care Education/Training Program; Referring Provider Internal Medicine Clinical Cardiac Electrophysiology; Visit Provider Internal Medicine Clinical Cardiac Electrophysiology
DX: I49.3 Ventricular premature depolarization (principal); Z01.810 Encounter for preprocedural cardiovascular examination
CPT/HCPCS: 36415; 80069; 85025; 85610

== ENCOUNTER → 2022-10-01 16:22 | Outpatient (CLI) | payer MEDICARE, OTHER, SELFPAY ==
[2022-10-01 17:46] LABS: Adenovirus Not Detected (Not Detect); B. parapertussis Not Detected (Not Detecte); Bordetella pertussis Not Detected (Not Detecte); Chlamydophila pneumoniae Not Detected (Not Detect); Coronavirus 229E Not Detected (Not Detect); Coronavirus HKU1 Not Detected (Not Detect); Coronavirus NL 63 Not Detected (Not Detect); Coronavirus OC43 Not Detected (Not Detect); Human Metapneumovirus Not Detected (Not Detect); Human Rhinovirus/Enterovirus Not Detected (Not Detect); Influenza A Not Detected (Not Detect); Influenza B Not Detected (Not Detect); Mycoplasma pneumoniae Not Detected (Not Detect); Parainfluenza Virus 1 Not Detected (Not Detect); Parainfluenza Virus 2 Not Detected (Not Detect); Parainfluenza Virus 3 Not Detected (Not Detect); Parainfluenza Virus 4 Not Detected (Not Detect); Respiratory Syncytial Virus Not Detected (Not Detect); SARS- CoV-2 Not Detected (Not Detecte)
== END ==
PROVIDERS: Family Provider Naturopath; PCP Pediatrics; Visit Provider Pediatrics
DX: E78.2 Mixed hyperlipidemia (principal); I10 Essential (primary) hypertension; I49.3 Ventricular premature depolarization; J40 Bronchitis, not specified as acute or chronic; R05.3 Chronic cough
CPT/HCPCS: 87633

== ENCOUNTER → 2022-10-01 16:26 | Outpatient (CLI) | payer MEDICARE, OTHER, SELFPAY ==
[2022-10-01 17:26] LABS: Add Manual Diff / Slide Review NO; Basophils Absolute Auto 100 /uL (0-100); Basophils Percent Auto 0.6 % (0-2); Eosinophils Absolute Auto 100 /uL (0-450); Eosinophils Percent Auto 0.7 % (2-4); Hematocrit 34.9 % (36-46); Hemoglobin 11.9 g/dL (12.0-16.0); Lymphocytes Absolute Auto 2100 /uL (1100-4500); Lymphocytes Percent Auto 18.2 % (25-40); Monocytes Absolute Auto 800 /uL (0-900); Monocytes Percent Auto 6.8 % (3-14); Neutrophils Absolute Auto 8700 /uL (1500-7000); Neutrophils Percent Auto 73.7 % (50-75); Platelet Count 390 X10^3/uL (150-400); Red Blood Cell Count 3.71 X10^6/uL (4.0-5.2); Red Cell Distribution Width 12.6 % (11.6-14.8); White Blood Cell Count 11.8 X10^3/uL (4.5-11.0)
[2022-10-01 17:38] LABS: Alanine Aminotransferase 38 IU/L (<35); Albumin Globulin Ratio 1.2 (1.0-2.8); Alkaline Phosphatase 146 U/L (38-126); Aspartate Aminotransferase 26 IU/L (14-36); BUN Creatinine Ratio 22.1 (6-22); Bilirubin Total 0.5 mg/dL (0.2-1.3); Blood Urea Nitrogen 17 mg/dL (7-17); C-Reactive Protein Quant 5.6 mg/dL (<1.0); Calcium 9.1 mg/dL (8.4-10.2); Carbon Dioxide 28 mmol/L (22-32); Chloride 97 mmol/L (98-107); Estimated Glomerular Filt Rate > 60 mL/min (>60); Globulin 3.3 g/dL (1.7-4.1); Glucose 101 mg/dL (80-110); HEMOLYSIS < 15 (0-50); Potassium 4.4 mmol/L (3.4-5.1); Sodium 133 mmol/L (137-145); Total Protein 7.3 g/dL (6.3-8.2)
[2022-10-01 17:44] LABS: NT-proBNP (BNP-Adult 18+) 226 pg/mL (<450)
== END ==
PROVIDERS: Family Provider Naturopath; PCP Pediatrics; Referring Provider Pediatrics; Visit Provider Pediatrics
DX: I49.3 Ventricular premature depolarization (principal); R05.3 Chronic cough; I10 Essential (primary) hypertension; J40 Bronchitis, not specified as acute or chronic; E78.2 Mixed hyperlipidemia
CPT/HCPCS: 36415; 80053; 83880; 85025; 86140

== ENCOUNTER → 2022-10-01 16:39 | Outpatient (CLI) | payer MEDICARE, OTHER, SELFPAY ==
--- NOTE | 2022-10-01 16:40 | DI.RAD.S_ITS ---
PROCEDURE: XR CHEST 2V INDICATIONS: Cough TECHNIQUE: 2 views of the chest were acquired. COMPARISON: [facility], , CHEST 2 VIEW, 10/08/2015, 15:22. FINDINGS: Surgical changes and devices: None. Lungs and pleura: Lungs are clear. No pleural effusions or pneumothorax. Mediastinum: Mediastinal contours are normal. Heart size is normal. Bones and chest wall: No suspicious bony abnormalities. Soft tissues appear unremarkable. IMPRESSION: No acute cardiopulmonary abnormality identified. Dictated by: Feliberto Bryan M.D. on 10/02/2022 at 9:16 Approved by: Feliberto Bryan M.D. on 10/02/2022 at 9:17
== END ==
PROVIDERS: Family Provider Naturopath; PCP Pediatrics; Referring Provider Pediatrics; Visit Provider Pediatrics
DX: R05.9 Cough, unspecified (principal); E78.2 Mixed hyperlipidemia; I10 Essential (primary) hypertension; I49.3 Ventricular premature depolarization; J40 Bronchitis, not specified as acute or chronic; R05.3 Chronic cough
CPT/HCPCS: 36415; 71046; 80053; 83880; 85025; 86140; 87633

== ENCOUNTER → 2022-10-21 08:40 | Outpatient (CLI) | payer MEDICARE, OTHER, SELFPAY ==
--- NOTE | 2022-10-21 | DI.MG.S_ITS ---
BILATERAL DIGITAL SCREENING MAMMOGRAM 3D/2D WITH CAD: 10/21/2022 CLINICAL: Routine screening. Comparison is made to exams dated: 05/16/2021 mammogram, 06/08/2020 mammogram, and 03/20/2019 mammogram - [facility]. Both breasts are heterogeneously dense, which may obscure small masses (category c / 51-75% glandular tissue). Current study was also evaluated with a Computer Aided Detection (CAD) system. There are benign vascular calcifications in both breasts. No significant masses, calcifications, or other findings are seen in either breast. There has been no significant interval change. IMPRESSION: BENIGN There is no mammographic evidence of malignancy. A 1 year screening mammogram is recommended. Based on the Tyrer Cuzick model (a risk assessment model) the patient's lifetime risk is 2.3% and her 10 year risk is 0.0%. According to the ACR, ACS, and NCCN guidelines, an annual breast MRI exam along with mammogram is recommended if the patient's lifetime risk is 20% or greater. This exam was interpreted at Station ID: [id number]. NOTE: For mammograms, a report in lay terms will be sent to the patient. Approximately 15% of breast malignancies will not be visualized mammographically. In the management of a palpable breast mass, a negative mammogram must not discourage biopsy of a clinically suspicious lesion. Electronically Signed By: Woo bhakta/viviana:10/21/2022 14:16:09 copy to: JAIMIE HERNANDEZ letter sent: Normal Exam ACR BI-RADS Category 2: Benign Finding(s) [id number]
== END ==
PROVIDERS: Family Provider Naturopath; PCP Internal Medicine; Referring Provider Internal Medicine; Visit Provider Internal Medicine
DX: Z12.31 Encounter for screening mammogram for malignant neoplasm of breast (principal)
CPT/HCPCS: 77063; 77067

== ENCOUNTER → 2023-05-13 09:44 | Outpatient (CLI) | payer MEDICARE, OTHER, SELFPAY ==
[2023-05-13 10:53] LABS: Add Manual Diff / Slide Review NO; Basophils Absolute Auto 100 /uL (0-100); Basophils Percent Auto 1.1 % (0-2); Eosinophils Absolute Auto 100 /uL (0-450); Eosinophils Percent Auto 2.9 % (2-4); Hematocrit 38.2 % (36-46); Hemoglobin 13.2 g/dL (12.0-16.0); Lymphocytes Absolute Auto 1300 /uL (1100-4500); Lymphocytes Percent Auto 25.8 % (25-40); Mean Corpuscular HGB Conc 34.5 % (30-36); Mean Corpuscular Hemoglobin 33.2 PG (26-34); Mean Corpuscular Volume 96.3 fL (80-100); Monocytes Absolute Auto 500 /uL (0-900); Neutrophils Absolute Auto 3000 /uL (1500-7000); Neutrophils Percent Auto 60.2 % (50-75); Platelet Count 224 X10^3/uL (150-400); Red Blood Cell Count 3.97 X10^6/uL (4.0-5.2); Red Cell Distribution Width 13.1 % (11.6-14.8)
[2023-05-13 11:33] LABS: HEMOLYSIS < 15 (0-50); Potassium 4.1 mmol/L (3.4-5.1)
[2023-05-13 11:34] LABS: Alanine Aminotransferase 51 IU/L (<35); Albumin 4.2 g/dL (3.5-5.0); Albumin Globulin Ratio 1.6 (1.0-2.8); Alkaline Phosphatase 63 U/L (38-126); BUN Creatinine Ratio 27.4 (6-22); Bilirubin Total 0.8 mg/dL (0.2-1.3); Blood Urea Nitrogen 17 mg/dL (7-17); Calcium 9.5 mg/dL (8.4-10.2); Carbon Dioxide 28 mmol/L (22-32); Chloride 100 mmol/L (98-107); Estimated Glomerular Filt Rate > 60 mL/min (>60); Globulin 2.7 g/dL (1.7-4.1); Glucose 103 mg/dL (80-110); Sodium 136 mmol/L (137-145); Total Protein 6.9 g/dL (6.3-8.2)
[2023-05-13 12:37] LABS: Free T4, Direct Thyroxine 1.05 ng/dL (0.78-2.19); T4 Total Thyroxine 6.76 ug/dL (5.5-11.0)
[2023-05-13 12:50] LABS: Thyroid Stimulating Hormone 1.01 uIU/mL (0.47-4.68)
[2023-05-14 14:58] LABS: Aspartate Aminotransferase 51 IU/L (14-36)
[2023-05-14 22:20] LABS: Deamidated Gliadin Ab IgA 3 units (0-19); Deamidated Gliadin Ab IgG 1 units (0-19); Immunoglobulin A,Qn 131 mg/dL (64-422); t-Transglutaminase IgA <2 U/mL (0-3)
[2023-05-19 22:02] LABS: Deamidated Gliadin IgA 3 units (0-19); Deamidated Gliadin IgG 2 units (0-19); IGA 135 mg/dL (64-422); t-Transglutaminase IgA <2 U/mL (0-3)
== END ==
LOC: LAB 09:47
PROVIDERS: Family Provider Naturopath; PCP Internal Medicine; Referring Provider Internal Medicine Gastroenterology; Visit Provider Internal Medicine Gastroenterology
DX: R14.0 Abdominal distension (gaseous) (principal); K59.00 Constipation, unspecified
CPT/HCPCS: 36415; 80053; 82784; 83516; 84436; 84439; 84443; 85025; 86255

== ENCOUNTER → 2023-11-30 15:57 | Outpatient (CLI) | payer MEDICARE, OTHER, SELFPAY ==
--- NOTE | 2023-11-30 15:58 | DI.MG.S_ITS ---
BILATERAL DIGITAL SCREENING MAMMOGRAM 3D/2D WITH CAD: 11/30/2023 CLINICAL: Routine screening. Comparison is made to exams dated: 10/21/2022 mammogram, 06/08/2020 mammogram, and 05/16/2021 mammogram - [facility]. Both breasts are heterogeneously dense, which may obscure small masses (category c / 51-75% glandular tissue). Current study was also evaluated with a Computer Aided Detection (CAD) system. There are benign vascular calcifications in both breasts. No significant masses, calcifications, or other findings are seen in either breast. There has been no significant interval change. IMPRESSION: BENIGN There is no mammographic evidence of malignancy. A 1 year screening mammogram is recommended. Based on the Tyrer Cuzick model (a risk assessment model) the patient's lifetime risk is 1.9% and her 10 year risk is 0.0%. According to the ACR, ACS, and NCCN guidelines, an annual breast MRI exam along with mammogram is recommended if the patient's lifetime risk is 20% or greater. This exam was interpreted at Station ID: [id number]. NOTE: For mammograms, a report in lay terms will be sent to the patient. Approximately 15% of breast malignancies will not be visualized mammographically. In the management of a palpable breast mass, a negative mammogram must not discourage biopsy of a clinically suspicious lesion. Electronically Signed By: Woo bhakta/viviana:12/01/2023 11:26:58 copy to: JAIMIE HERNANDEZ letter sent: Normal Exam ACR BI-RADS Category 2: Benign Finding(s) [id number]
== END ==
PROVIDERS: Family Provider Naturopath; PCP Internal Medicine; Referring Provider Internal Medicine; Visit Provider Internal Medicine
DX: Z12.31 Encounter for screening mammogram for malignant neoplasm of breast (principal); R92.333 Mammographic heterogeneous density, bilateral breasts
CPT/HCPCS: 77063; 77067

== ENCOUNTER → 2023-12-10 11:25 | Outpatient (CLI) | payer MEDICARE, OTHER, SELFPAY ==
[2023-12-10 12:50] LABS: Alanine Aminotransferase 36 IU/L (<35); Albumin 4.3 g/dL (3.5-5.0); Alkaline Phosphatase 71 U/L (38-126); Aspartate Aminotransferase 35 IU/L (14-36); Bilirubin Total 0.8 mg/dL (0.2-1.3); Blood Urea Nitrogen 20 mg/dL (7-17); Calcium 9.3 mg/dL (8.4-10.2); Carbon Dioxide 28 mmol/L (22-32); Chloride 101 mmol/L (98-107); Estimated Glomerular Filt Rate > 60 mL/min (>60); Globulin 2.1 g/dL (1.7-4.1); Glucose 109 mg/dL (80-110); HEMOLYSIS < 15 (0-50); Potassium 4.5 mmol/L (3.4-5.1); Sodium 135 mmol/L (137-145); Total Protein 6.4 g/dL (6.3-8.2)
[2023-12-10 12:57] LABS: NT-proBNP (BNP-Adult 18+) 218 pg/mL (<450)
== END ==
PROVIDERS: Family Provider Naturopath; PCP Internal Medicine; Referring Provider Internal Medicine Clinical Cardiac Electrophysiology; Visit Provider Internal Medicine Clinical Cardiac Electrophysiology
DX: I50.31 Acute diastolic (congestive) heart failure (principal); I11.0 Hypertensive heart disease with heart failure
CPT/HCPCS: 36415; 80053; 83880

== ENCOUNTER → 2024-10-26 14:55 | Outpatient (CLI) | payer MEDICARE, OTHER, SELFPAY ==
[2024-10-26 20:01] LABS: MRSA (Nasal) PCR NOT DETECTED (Not Detect)
== END ==
LOC: LAB 14:58
PROVIDERS: Family Provider Naturopath; PCP Internal Medicine; Visit Provider Physician Assistant
DX: Z01.818 Encounter for other preprocedural examination (principal)
CPT/HCPCS: 87797

== ENCOUNTER → 2024-10-26 15:48 | Outpatient (CLI) | payer MEDICARE, OTHER, SELFPAY ==
[2024-10-26 17:59] LABS: Add Manual Diff / Slide Review NO; Basophils Absolute Auto 0 /uL (0-100); Basophils Percent Auto 0.7 % (0-2); Eosinophils Absolute Auto 100 /uL (0-450); Eosinophils Percent Auto 1.7 % (2-4); Hematocrit 40.1 % (36-46); Hemoglobin 13.6 g/dL (12.0-16.0); Lymphocytes Absolute Auto 2000 /uL (1100-4500); Lymphocytes Percent Auto 34.7 % (25-40); Mean Corpuscular Hemoglobin 33.2 PG (26-34); Mean Corpuscular Volume 97.7 fL (80-100); Monocytes Absolute Auto 600 /uL (0-900); Monocytes Percent Auto 10.5 % (3-14); Neutrophils Absolute Auto 3000 /uL (1500-7000); Neutrophils Percent Auto 52.4 % (50-75); Platelet Count 220 X10^3/uL (150-400); Red Blood Cell Count 4.11 X10^6/uL (4.0-5.2); Red Cell Distribution Width 13.6 % (11.6-14.8); White Blood Cell Count 5.7 X10^3/uL (4.5-11.0)
[2024-10-26 18:16] LABS: BUN Creatinine Ratio 25.7 (6-22); Blood Urea Nitrogen 19 mg/dL (7-17); Calcium 9.6 mg/dL (8.4-10.2); Carbon Dioxide 29 mmol/L (22-32); Chloride 99 mmol/L (98-107); Estimated Glomerular Filt Rate > 60 mL/min (>60); Glucose 85 mg/dL (70-99); HEMOLYSIS < 15 (0-50); Potassium 4.5 mmol/L (3.4-5.1); Sodium 134 mmol/L (137-145)
== END ==
PROVIDERS: Orthopaedic Surgery; Family Provider Naturopath; PCP Internal Medicine; Referring Provider Internal Medicine; Visit Provider Internal Medicine
DX: Z01.818 Encounter for other preprocedural examination (principal)
CPT/HCPCS: 80048; 85025; 87797

== ENCOUNTER → 2024-11-20 15:46 | Outpatient (CLI) | payer MEDICARE, OTHER, SELFPAY ==
--- NOTE | 2024-11-20 15:52 | DI.MRI.S_ITS ---
PROCEDURE: MR SHOULDER RT WO CON INDICATIONS: Evaluate right shoulder TECHNIQUE: Noncontrast oblique coronal T2 fast spin echo with fat saturation, oblique sagittal T1 spin echo and T2 fast spin echo with fat saturation, axial T1 spin echo and T2 fast spin echo with fat saturation through the shoulder. COMPARISON: [facility] [place], CR, XR SHOULDER 2+ VIEWS RIGHT, 12/17/2020, 15:56. FINDINGS: Image quality: Excellent. Rotator cuff: Full-thickness tearing of the supraspinatus tendon and the anterior fibers of the infraspinatus tendon at the distal insertions measuring approximately 1.5 cm in anterior-posterior dimension with 1.5 cm of proximal tendon retraction. Teres minor tendon is intact. High-grade partial articular sided tearing of the subscapularis tendon at the distal insertion. No disproportionate rotator cuff muscle atrophy. Bones and bursae: No acute trabecular bone injury or fracture. Small chronic traction cystic changes seen at the posterior superior humeral head and greater and lesser tuberosities near the rotator cuff tendon insertions. Mild partial-thickness cartilage irregularity in the glenohumeral joint with small marginal osteophytes. Moderate degenerative changes of the acromioclavicular joint with subchondral cystic changes and small marginal osteophytes. Glenohumeral joint fluid communicates with the subacromial/subdeltoid bursa. Capsule and soft tissues: Diminutive appearance of the superior labrum likely related to degeneration and chronic tearing. Biceps long head tendon is not seen compatible with full-thickness tearing and distal retraction. Glenohumeral ligaments are intact. IMPRESSION: 1. Full-thickness tearing of the supraspinatus tendon and the anterior fibers of the infraspinatus tendon at the distal insertions measuring approximately 1.5 cm in anterior-posterior dimension with 1.5 cm of proximal tendon retraction. 2. High-grade partial articular sided tearing of the subscapularis tendon at the distal insertion. 3. Complete tearing distal retraction of the proximal biceps long head tendon. 4. 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 Diffuse labral degeneration and chronic degenerative tearing. 5. Moderate acromioclavicular joint osteoarthrosis. 6. Small glenohumeral effusion communicates with the subacromial/subdeltoid bursa. Approved by: Woo Dee M.D. on 11/21/2024 at 9:49
== END ==
PROVIDERS: Family Provider Naturopath; PCP Internal Medicine; Referring Provider Orthopaedic Surgery Adult Reconstructive Orthopaedic Surgery; Visit Provider Orthopaedic Surgery Adult Reconstructive Orthopaedic Surgery
DX: M75.121 Complete rotator cuff tear or rupture of right shoulder, not specified as traumatic (principal); M19.011 Primary osteoarthritis, right shoulder; M25.511 Pain in right shoulder; M94.211 Chondromalacia, right shoulder; M25.411 Effusion, right shoulder; S46.111A Strain of muscle, fascia and tendon of long head of biceps, right arm, initial encounter
CPT/HCPCS: 73221

== ENCOUNTER 2024-11-29 06:27 | Day surgery (SDC) | payer MEDICARE, OTHER, SELFPAY ==
[2024-11-24 09:42] VITALS: BMI 24.1
[2024-11-29] VITALS (9 sets, daily range): BP systolic 133–142; BP diastolic 65–78; PULSE 50–66; RESP 16–19; TEMP 35.7–36.7; O2SAT 93–98; BMI 23.6
[2024-11-29] MEDS: ACETAMINOPHEN 325 MG TABLET 975 MG PO (07:05)
[2024-11-29] MEDS: LACTATED RINGERS 1,000 ML 42 ML IV (07:06)
--- NOTE | 2024-11-29 07:07 | PM.PREOP ---
Pre-operative Note COVID-19 Result date/Date tested (Pos, Neg/Pending): 11/29/24 Interval Note History & Physical reviewed/Exam performed by Physician: Yes Changes to H&P: No
[2024-11-29] MEDS: ALBUTEROL/IPRATROPIUM 3 ML AMPUL INH (07:37)
[2024-11-29] MEDS: CEFAZOLIN 2 GM/100 ML PREMIX 100 ML IV (07:59)
--- NOTE | 2024-11-29 08:39 | SUR.OPER ---
Beach chair with Skytron shoulder positioner. Lower body on padded OR bed. Head in foam padded head cradle, secured with straps. Non-operative arm secured <90 degrees abduction on arm laughlin with gel padding. Pillow under knees. Safety belt at thigh. Cloth tape over blanket over lower legs. Padded hip sales assistants and salespersons on patients right chest laterally.
--- NOTE | 2024-11-29 09:08 | SUR.OPER ---
Beach chair with Skytron shoulder positioner. Lower body on padded OR bed. Head in foam padded head cradle, secured with straps. Non-operative arm secured <90 degrees abduction on padded arm laughlin. Pillow under knees. Safety belt at thigh. Cloth tape over blanket over lower legs. Gel pad under heels. Padded hip road oiling truck driver at patients right chest laterally.
[2024-11-29] MEDS: SODIUM CHLORIDE IRRIG SOLUTION 3,000 ML, EPINEPHrine 3 MG IRR (11:00)
--- NOTE | 2024-11-29 11:32 | PM.OP.1 ---
Operative Date/Time/Diagnoses Date of procedure: 11/29/24 Time of procedure: 11:32 Pre-op diagnosis: RIGHT Shoulder Rotator Cuff Tear Post-op diagnosis: same Procedure & Clinicians Procedure: RIGHT SHoulder Rotator Cuff Repair and SLAP Debridement Same procedure(s) as scheduled: Yes Indications: Chronic RIGHT [place]ler Pain Surgeon: Epi eWber Research Executive: Cande Dockery Anesthesia Type: General Operative Notes Findings: Full thickness rotator cuff tear and fryaing of the SLAP region, Closure Type: primary Specimen(s): none sent Applied: none Estimated Blood Loss (mL): 25 Blood products transfused: none Procedure in detail: Patient Name: ABDON BILLY Date of Operation: November 29, 2024 Preoperative diagnosis: Right Shoulder Rotator Cuff Tear Procedure performed: Right Shoulder Diagnostic Arthroscopy, Rotator Cuff Repair, and SLAP debridement Postoperative diagnosis: Same Primary Surgeon: Epi Weber MD Secondary Surgeon: KRISTEN Figueroa Physician Research Executive was used throughout the entirety of the case. They assisted with room set up, patient positioning, draping, retraction, reduction, fixation and closure. They were essential for the success of the case. Anesthesia: General EBL: 25 ml Implants: Arthrex SpeedFix Double Row Indication for Surgery: Nonoperative management failed to resolve symptoms. The risks, benefits, and alternatives were discussed. Risks included pain, bleeding, infection, damage to nearby structures, lack of symptom relief, implant complications, stiffness, need for further surgeries, DVT, PE, stroke, and even . They signed a written consent form. Examination Under Anesthesia: ROM: Forward flexion 170, abduction 170 Anterior load and shift: Grade 1 Posterior load and shift: Grade 1 Inferior sulcus: Grade 1 Diagnostic Findings: Rotator interval: Normal Biceps tendon & SLAP: Fraying of the SLAP region, no biceps tendon identified within the joint Subscapularis: Fraying but no full-thickness tear Rotator Cuff: Full-thickness tear of the supraspinatus HAGL: No HAGL Labrum: Degenerative changes Glenoid Cartilage: Grade 2-3 chondromalacia Humeral Head Cartilage: Grade 2-3 chondromalacia Procedure in Detail: The patient was met in the preoperative holding on the day of the procedure. Operative extremity was signed. Consent was verified. The patient desired to proceed. Regional anesthesia was obtained in the preoperative area. They were brought to the operating room and surrendered to anesthesia. Once general anesthesia was obtained they were placed in the beach chair position. All bony prominences were well-padded. They were then prepped and draped in the standard sterile fashion. A surgical timeout was held to confirm the patient procedure, identity, laterality, allergies, images, and antibiotics. All were in agreement and we proceeded. A standard diagnostic arthroscopy was performed utilizing posterior and anterior superior portal sites. The anterior superior portal site was created under direct visualization. The findings of the diagnostic arthroscopy can be found above. Upon examination of the rotator cuff, there was only fraying noted from inside the joint. This was debrided but there was no location of a full-thickness tear. There is no intra-articular biceps tendon. However there was fraying of the SLAP region. This was also debrided. Subacromial Decompression: The obturator was placed into the subacromial space along the underside of the acromion from the posterior portal passing lateral to the coracoacromial ligament and out the anterior incision. The crystal cannula was threaded over this and the serfas wand was placed into the cannula. The camera was inserted and the cannula was backed out until the camera and instruments were in the subacromial space. The serfas wand was used to excise tissue from the underside of the acromion and establish a small space for viewing. The leading edge of the CA ligament was released. A lateral incision was made after localization with a spinal needle. The shaver was inserted and the bursa was excised completely, taking care to excise all bursa from the anterior and lateral gutters. The rotator cuff was protected throughout. The rotator cuff was probed and found to have a full-thickness rotator cuff tear of the supraspinatus. Rotator Cuff Repair: The rotator cuff tear was identified from the subacromial space. It was decided that this would require a Speedfix fixation with both a two medial anchors and lateral row. The frayed edges of the rotator cuff were debrided back. The new footprint was debrided of soft tissue. A self punching double loaded implant was placed just lateral to the articular surface. The sutures were then pulled out anteriorly. We then placed the 2nd self punching double loaded implant posterior to the initial. Sutures were then pulled out of the posterior shoulder. A scorpion was used to pass the sutures through the medial aspect of the rotator cuff. 1 of the 2 limbs of the posterior implant came out of the anchor. This left us with just 3 limbs. At that point we decided to include all 3 limbs into a lateral single anchor. The swivel lock were then inserted into the lateral bone socket while applying tension to the Fibertape which reduced and compressed the torn rotator cuff to the bone. The shoulder was taken through a range of motion which demonstrated a fully repair rotator cuff which moved continuously with the movement of the shoulder. Final images were obtained and the instruments were removed from the shoulder. The incisions were closed with 3-0 Nylon, sterile dressing and sling were applied. Postoperative Plan: Same day discharge Sling use for 6 weeks Physical Therapy consult placed Follow up with ortho in 2 weeks for suture removal and clinical examination Epi Weber MD Complications: none Post-operative Condition: stable Disposition: PACU
--- NOTE | 2024-11-29 14:23 | SUR.PREOP ---
Time out 0741 Block start time 0745 . Monitoring initiated and maintained throughout procedure. Oxygen and medications given by anesthesiologist. Patient remained stable throughout procedure, no adverse reactions noted. Block end time 0749 .
== END 2024-11-29 12:51 | disposition home or self-care (01) ==
PROVIDERS: Family Provider Naturopath; PCP Internal Medicine; Referring Provider Orthopaedic Surgery; Visit Provider Orthopaedic Surgery
PROC: (CPT 29827; principal; 2024-11-29 07:45)
DX: M75.121 Complete rotator cuff tear or rupture of right shoulder, not specified as traumatic (principal); S43.431A Superior glenoid labrum lesion of right shoulder, initial encounter; X50.9XXA Other and unspecified overexertion or strenuous movements or postures, initial encounter; G89.18 Other acute postprocedural pain; M94.211 Chondromalacia, right shoulder
CPT/HCPCS: 29827; 29826; 29822; 64450; C1713; J0165; J0690; J1100; J1885; J2405; J2704; J3010

== ENCOUNTER → 2024-12-18 15:16 | Outpatient (CLI) | payer MEDICARE, OTHER, SELFPAY ==
[2024-12-18 16:20] LABS: Blood Urea Nitrogen 18 mg/dL (7-17); Calcium 9.7 mg/dL (8.4-10.2); Carbon Dioxide 29 mmol/L (22-32); Chloride 101 mmol/L (98-107); Cholesterol 150 mg/dL (140-199); Estimated Glomerular Filt Rate > 60 mL/min (>60); Glucose 89 mg/dL (70-99); HDL Cholesterol 87 mg/dL (40-60); HEMOLYSIS < 15 (0-50); Potassium 4.3 mmol/L (3.4-5.1); Sodium 135 mmol/L (137-145); Triglycerides 101 mg/dL (35-150)
[2024-12-18 17:22] LABS: Hemoglobin A1C% w Est Avg Glu 5.1 % (4.0-6.0)
== END ==
PROVIDERS: PCP Internal Medicine; Referring Provider Internal Medicine; Visit Provider Naturopath
DX: E78.2 Mixed hyperlipidemia (principal); I10 Essential (primary) hypertension
CPT/HCPCS: 36415; 80048; 80061; 83036; 84450

== ENCOUNTER → 2025-02-14 | Outpatient (CLI) | payer MEDICARE, OTHER, SELFPAY ==
--- NOTE | 2025-02-14 10:58 | DI.MG.S_ITS ---
MM screening mammo BI: 02/14/2025. BI-RADS: 1 CLINICAL: 79-year old female for bilateral screening mammogram. Tyrer-Cuzick lifetime risk of 1.1%. No personal or first-degree family history of breast cancer. The patient had a prior right breast biopsy. PRIOR EXAMS: 11/30/2023, 10/21/2022, 05/16/2021, 06/08/2020, 03/20/2019, 11/03/2017. MAMMOGRAPHY TECHNIQUE: 2D and 3D (tomosynthesis) digital mammographic views obtained, with additional images as needed for full coverage. Current study was also evaluated with a Computer Aided Detection (CAD) system. DENSITY C. The breasts are heterogeneously dense, which may obscure small masses. MAMMOGRAPHY FINDINGS Bilateral: No suspicious mass, asymmetry, microcalcification, or other abnormality seen. IMPRESSION: * No evidence of malignancy. RECOMMENDATIONS Bilateral * Annual screening mammography. OVERALL ASSESSMENT CATEGORY BI-RADS-1: Negative. [employer] recommends annual screening mammography beginning at age 40 for women with average risk of breast cancer. ELECTRONICALLY SIGNED: Ashly Forman M.D. on 02/20/2025 at 08:36:25 AM PT Interpreting Station ID: [id number]
== END ==
LOC: MAMMO 10:58
PROVIDERS: PCP Internal Medicine; Referring Provider Internal Medicine; Visit Provider Internal Medicine
DX: Z12.31 Encounter for screening mammogram for malignant neoplasm of breast (principal); R92.333 Mammographic heterogeneous density, bilateral breasts
CPT/HCPCS: 77063; 77067